=== PATIENT | male | born 1975 | race Caucasian/White ===

== ENCOUNTER 2019-11-20 12:20 | Observation (INO) ==
[2019-11-20] MEDS ORDERED: NITROGLYCERIN SL PRN (12:54)
[2019-11-20] MEDS ORDERED: ASPIRIN PO ONE (12:54)
[2019-11-20] MEDS ORDERED: NITROGLYCERIN TOP ONE (12:55)
--- NOTE | 2019-11-20 12:56 | Diag Imaging Result Doc PS360 ---
CHEST-2 VIEWS - 11/20/2019 INDICATION: CP COMPARISON: None FINDINGS: The lungs are normally expanded and clear. Heart size and mediastinal contours are normal. No pneumothorax or pleural effusion. IMPRESSION: Negative exam. Electronically signed by Andre Baumann 11/20/2019 12:53 PM
--- NOTE | 2019-11-20 13:11 | EKG Report ---
Test Performed on : 11/20/2019 12:41:05 PM Test Reason : CP Blood Pressure : / mmHG Vent. Rate : 070 BPM Atrial Rate : 070 BPM P-R Int : 150 ms QRS Dur : 092 ms QT Int : 390 ms P-R-T Axes : 026 019 077 degrees QTc Int : 421 ms Normal sinus rhythm. Cannot rule out Inferior infarct , age undetermined Abnormal ECG No previous ECGs available Unconfirmed Result
[2019-11-20 13:46] LABS: BASO# 0.02 X1000 (0.0-0.2); BASO% 0.2 % (0.0-0.8); EOS# 0.02 X1000 (0.0-0.7); EOS% 0.2 % (0.0-10.0); HEMOGLOBIN 16.4 g/dL (14.0-18.0); IMM GRAN# 0.01 X1000 (0.0-0.04); IMM GRAN% 0.1 % (0.0-0.5); LYMPH# 2.23 X1000 (1.2-3.4); LYMPH% 24.2 % (20.5-51.1); MCH 30.5 PG (27-31); MCHC 34.2 g/dL (33-37); MCV 89.4 FL (81-99); MONO# 0.54 X1000 (0.11-0.59); MONO% 5.9 % (1.7-9.3); MPV 11.2 FL (7.4-10.4); NEUT# 6.41 X1000 (1.4-6.5); NEUT% 69.4 % (42.2-75.2); PLT 187 X1000 (130-400); RBC 5.37 XMIL (4.7-6.1); RDW 12.8 % (11.5-14.5); WBC 9.23 X1000 (4.8-10.8)
[2019-11-20 14:26] LABS: AGAP 16; ALBUMIN 4.5 g/dL (3.5-5.0); ALKALINE PHOSPHATASE 97 U/L (32-122); BUN 9 mg/dL (8-22); CALCIUM 9.3 mg/dL (8.8-10.2); CHLORIDE 104 mmol/L (98-107); CK PROFILE 76 U/L (24-204); COSMO 284; CREATININE 0.8 mg/dL (0.7-1.2); ESTIMATED GFR > 60; GLUCOSE 169 mg/dL (70-104); GOT 16 U/L (10-34); GPT 18 U/L (10-44); POTASSIUM 4.5 mmol/L (3.5-5.1); SODIUM 141 mmol/L (136-145); TCO2 21 mmol/L (25-35); TOTAL PROTEIN 7.3 g/dL (6.3-8.3)
[2019-11-20 14:32] LABS: INR 0.87; PROTIME 12.2 Seconds (11.0-16.0)
[2019-11-20 14:33] LABS: PTT 30.5 Seconds (22.3-41.8)
[2019-11-20] MEDS ORDERED: TYLENOL PO ONE (15:35)
[2019-11-20] MEDS ORDERED: MORPHINE IV ONE (15:35)
--- NOTE | 2019-11-20 16:16 | EKG Report ---
Test Performed on : 11/20/2019 3:25:31 PM Test Reason : repeat Blood Pressure : / mmHG Vent. Rate : 063 BPM Atrial Rate : 063 BPM P-R Int : 156 ms QRS Dur : 100 ms QT Int : 390 ms P-R-T Axes : 015 006 043 degrees QTc Int : 399 ms Normal sinus rhythm. Incomplete right bundle branch block Inferior infarct (cited on or before 20-NOV-2019) Cannot rule out Anterior infarct , age undetermined Abnormal ECG When compared with ECG of 20-NOV-2019 12:41, (Unconfirmed) Questionable change in initial forces of Inferior leads Unconfirmed Result
--- NOTE | 2019-11-20 17:02 | ED EKG INTERP ---
This chart was entered by Sara Barclay Scribe, acting as scribe for Kahlil Garcia MD. EKG Interpretation - EKG Time of EKG reading by physician:: 15:35 EKG Read and Signed by:: Kahlil Garcia EKG Interpretation (*Must complete 3 of following elements*): Abnormal Rate: 63 (rt gracie block ) Rhythm: NSR QRS: poor R wave progression RI Interval: normal ST Wave: non-specific ST changes (NSSTTW) Prior EKG Comparison: unchanged from prior Comments: early repolarization Attestation - Physician/ RYAN Attestation Patient care was provided by Advanced Practice Provider:: No The physician spent face to face time with patient:: Yes Advanced Practice Provider documentation review:: Supervising physician onsite and consulted in the evaluation and care of this patient. The physician did have a face to face encounter with the patient. This chart was documented by the indicated scribe, (Sara Barclay Scribe) and accurately reflects the services I performed and decisions made by , Kahlil Garcia MD, as attested by the provider's signature.
--- NOTE | 2019-11-20 17:08 | PROVIDER DOCUMENTATION ---
This chart was entered by Nahed Catherine Scribe, acting as scribe for Kahlil Garcia MD. HPI-Chest Pain - General Chief Complaint: Chest Pain Stated Complaint: CHEST PAIN Time Seen by Provider: 11/20/19 12:50 Source: patient Allergies/Adverse Reactions: Patient Allergies Allergy/AdvReac Type Severity Reaction Status Date / Time No Known Allergies Allergy Verified 11/20/19 12:30 Home Medications: Home Medication List Medication Instructions Recorded Confirmed Last Taken Type No Home Medications 03/01/14 11/20/19 Unknown History - History of Present Illness-CP Nature of Presenting Problem: 44yom presents to ED cc chest pain that radiates to both jaws, both sides neck and left arm since this morning. Pt also reports some nausea and 1x vomiting. Pt reports he just can't get comfortable. Pt has no pmhx and saw his PCP/Dr. Shrestha 2 wks ago for check up and all was normal at that time Pt denies SOB. Location: reports: substernal Chest Pain Radiation: reports: jaw (both), arms (leeft), neck (both) Quality of Pain: reports: sharp Severity in ED: mild, moderate Onset/Duration: this morning Timing: still present Context/Activities at Onset: reports: light activity Modifying Factors: improves with: nothing Aspirin Treatment Today: 325 mg x 1, provided by ED Prior Chest Pain/Cardiac Workup: reports: no prior chest pain Similar Symptoms Previously?: No Recently Seen Here or By Another Healthcare Provider: Yes (saw PCP 2wks ago) Review of Systems - Adult - REVIEW OF SYSTEMS - ADULT Constitutional: reports: see HPI. denies: chills, fever, fatique Eyes: reports: no symptoms reported Ears, Nose, Mouth & Throat: reports: no symptoms reported Cardiovascular: reports: see HPI, chest pain Respiratory: reports: see HPI. denies: cough, shortness of breath Gastrointestinal: reports: see HPI, nausea, vomiting Genitourinary: reports: no symptoms reported Musculoskeletal: reports: no symptoms reported Integumentary: reports: no symptoms reported Neurological: reports: no symptoms reported Psychiatric: reports: no symptoms reported Endocrine: reports: no symptoms reported Hematologic/Lymphatic: reports: no symptoms reported Allergic/Immunologic: reports: no symptoms reported All Other Systems: Reviewed and Negative Past History - Adult - PAST MEDICAL HISTORY-ADULT Review of Records: reports: Nursing Assessment Review, Medications Reviewed, Social history reviewed & non-contributory. Major Childhood Illnesses: reports: denies history Cardiovascular: reports: denies history Respiratory: reports: denies history Gastrointestinal: reports: denies history Obstetrical/Gynecological: reports: denies history Genitourinary: reports: denies history Musculoskeletal: reports: denies history Neurological: reports: denies history Endocrine/Immune: reports: denies history Other Conditions: reports: denies history - IMMUNIZATION STATUS Childhood Immunizations: See Nurse Assessment Flu Vaccine: See Nurse Assessment - FAMILY HISTORY Family History: reviewed, not pertinent - SOCIAL HISTORY Smoking: cigarettes, greater than 1 pack/day Provider spent 3-5 mins advising pt. on dangers of tobacco.: Discussed manners to quit use, and f/u contacts for add'l counseling. Physical Exam-General - PHYSICAL EXAM-ADULT Initial Vital Signs Reviewed: Yes - CONSTITUTIONAL General Appearance: appears well, alert, no apparent distress. negative: anxious, combative - EYES Eyes: PERRL/EOMI, pink conjunctivae - HEAD, EARS, NOSE, MOUTH & THROAT HENMT: normocephalic/atraumatic, moist mucous membranes - NECK Neck: supple, normal inspection - RESPIRATORY Respiratory: chest non-tender, lungs clear, normal breath sounds. negative: wheezing - CARDIOVASCULAR Cardiovascular: normal peripheral pulses, regular rate, rhythm. negative: bradycardia, tachycardia - GASTROINTESTINAL (ABDOMEN) Abdominal Exam: non tender, soft. negative: rebound - MUSCULOSKELETAL Extremity: normal inspection. negative: deformity - SKIN Integumentary: normal color. negative: diaphoresis, jaundice, rash - PSYCHIATRIC Psych/Mental Status: normal mood/affect, oriented x 3. negative: anxious, disheveled - HEART Score HEART Score: History: Highly Suspicious HEART Score: ECG: Non-Specific Repolarization Disturbance/LBBB/PM HEART Score: Age: < or = 45 Years HEART Score: Risk Factors for Atherosclerotic Disease: No Risk Factors Known HEART Score: Troponin: 1-3x Normal Limit Total HEART Score:: 4 Progress - PLAN OF CARE/RESULTS Progress/Plan/Lab Results: Vital Signs - 8 hr 11/20/19 12:27 11/20/19 15:00 11/20/19 16:28 Temperature 97.4 F L Pulse Rate 74 69 71 Respiratory Rate 17 16 13 Blood Pressure 166/133 139/97 148/92 O2 Sat by Pulse Oximetry 97 98 96 11/20/19 16:45 Temperature Pulse Rate 67 Respiratory Rate 18 Blood Pressure 127/92 O2 Sat by Pulse Oximetry 96 Laboratory Results - last 24 hr 11/20/19 11/20/19 11/20/19 13:35 13:35 13:35 WBC 9.23 RBC 5.37 Hgb 16.4 Hct 48.0 MCV 89.4 MCH 30.5 MCHC 34.2 RDW Std Deviation 12.8 Plt Count 187 MPV 11.2 H Immature Gran % (Auto) 0.1 Neut % (Auto) 69.4 Lymph % (Auto) 24.2 Russell % (Auto) 5.9 Eos % (Auto) 0.2 Baso % (Auto) 0.2 Immature Gran # (Auto) 0.01 Neut # (Auto) 6.41 Lymph # (Auto) 2.23 Russell # (Auto) 0.54 Eos # (Auto) 0.02 Baso # (Auto) 0.02 PT INR PTT (Actin FS) Sodium 141 Potassium 4.5 Chloride 104 Carbon Dioxide 21 L Anion Gap 16 BUN 9 Creatinine 0.8 Estimated GFR/1.73 m2 > 60 BUN/Creatinine Ratio 11 Glucose 169 H Calculated Osmolality 284 Calcium 9.3 Total Bilirubin 0.40 AST 16 ALT 18 Alkaline Phosphatase 97 Creatine Kinase 76 Troponin T High Sens [id number]-Ywcngsoqvej Pept 9 Total Protein 7.3 Albumin 4.5 Globulin 3.0 Albumin/Globulin Ratio 2.0 11/20/19 11/20/19 11/20/19 13:35 13:35 15:25 WBC RBC Hgb Hct MCV MCH MCHC RDW Std Deviation Plt Count MPV Immature Gran % (Auto) Neut % (Auto) Lymph % (Auto) Russell % (Auto) Eos % (Auto) Baso % (Auto) Immature Gran # (Auto) Neut # (Auto) Lymph # (Auto) Russell # (Auto) Eos # (Auto) Baso # (Auto) PT 12.2 INR 0.87 PTT (Actin FS) 30.5 Sodium Potassium Chloride Carbon Dioxide Anion Gap BUN Creatinine Estimated GFR/1.73 m2 BUN/Creatinine Ratio Glucose Calculated Osmolality Calcium Total Bilirubin AST ALT Alkaline Phosphatase Creatine Kinase Troponin T High Sens 15 50 H D [id number]-Tbcrrzplorh Pept Total Protein Albumin Globulin Albumin/Globulin Ratio Orders Category Date Time Status Cardiac Monitoring DIRECTED Care 02/13/20 12:54 Active If abnormal EKG, order: NOW Care 11/20/19 12:35 Active Nursing- Obtain EKG once Care 11/20/19 14:55 Completed Oxygen Therapy- ED Nursing DIRECTED Care 11/20/19 12:54 Completed Saline Loc NOW Care 11/20/19 12:54 Completed CHEST-2 VIEWS [RAD] Stat Exams 11/20/19 12:35 Completed CBC WITH ELECTRONIC DIFF [HEME] Stat Lab 11/20/19 13:35 Completed CK PROFILE [SP CHEM] Stat Lab 11/20/19 13:35 Completed COMPREHENSIVE METABOLIC PANEL [CHEM] Stat Lab 11/20/19 13:35 Completed PRO B-NATRIURETIC PEPTIDE Stat Lab 11/20/19 13:35 Completed PROTIME WITH INR [COAG] Stat Lab 11/20/19 13:35 Completed PTT [COAG] Stat Lab 11/20/19 13:35 Completed TROPONIN T HIGH SENSITIVITY Stat Lab 11/20/19 13:35 Completed TROPONIN T HIGH SENSITIVITY Stat Lab 11/20/19 15:25 Completed Acetaminophen [Tylenol] Med 11/20/19 15:35 Discontinued 1,000 mg PO NOW ONE Aspirin Med 11/20/19 12:54 Discontinued 325 mg PO NOW ONE Morphine Med 11/20/19 15:35 Discontinued 2 mg IV NOW ONE Nitroglycerin Med 11/20/19 12:55 Discontinued 0.5 inch TOP NOW ONE Nitroglycerin Sl [Nitroglycerin] Med 11/20/19 12:54 Active 0.4 mg SL Q5M PRN PRN CP/Palp <45 No Known Cardiac Hx Stat Oth 11/20/19 12:35 Ordered CP/SOB/Palp >45 yrs of Age Stat Oth 11/20/19 12:54 Ordered EKG [EKG] Stat Ther 11/20/19 12:35 Draft EKG [EKG] Stat Ther 11/20/19 14:55 Draft Result Diagrams: 11/20/19 13:35 11/20/19 13:35 - REASSESSMENT Reassessment #1 Time Reassessed: 17:02 Status: improving (Pain is gone. hsTrop is non critical, but trending upward. That and the history and elevated BP concern me for unstable angina. Will ask Dr. Godoy to admit.) Reassessment Comment: BP 139/97 - EKG 1 Time of EKG reading by physician:: 12:40 EKG Read and Signed by:: Kahlil Garcia EKG Interpretation (*Must complete 3 of following elements*): Abnormal (cannot rule out inferior infarct, age undetermined; early repolarization) Rate: 70 Rhythm: NSR [place]: normal QRS: poor R wave progression Departure - Departure Date of Disposition Decision: 11/20/19 Time of Disposition Decision: 17:06 DIAGNOSIS: Chest pain, precordial, Unstable angina pectoris, Hypertensive urgency, Tobacco use disorder Disposition: ADMITTED INPATIENT 09 Certified Medical Emergency: Emergent Condition: Stable Referrals and Follow-Ups: Carlotta Shrestha MD [Primary Care Provider] - Discharge Education: Steps to Quit Smoking, [id number] - Critical Care Note This patient required my direct & personal management of CC.: No Attestation - Physician/ RYAN Attestation Patient care was provided by Advanced Practice Provider:: No The physician spent face to face time with patient:: Yes Advanced Practice Provider documentation review:: Supervising physician onsite and consulted in the evaluation and care of this patient. The physician did have a face to face encounter with the patient. This chart was documented by the indicated scribe, (Nahed Catherine, Mauryibjerman) and accurately reflects the services I performed and decisions made by me, Kahlil Garcia MD, as attested by the provider's signature.
[2019-11-20] MEDS ORDERED: LOPRESSOR PO ONE (17:49)
[2019-11-20] MEDS ORDERED: TYLENOL PO PRN (17:49)
[2019-11-20] MEDS ORDERED: ZOFRAN IV PRN (17:49)
[2019-11-20 21:45] LABS: CK INDEX 12.6 (0.0-2.5); CK-MB 68.02 ng/mL (0.0-5.0)
[2019-11-20 22:15] LABS: INR 0.93; PROTIME 12.9 Seconds (11.0-16.0)
--- NOTE | 2019-11-21 02:18 | HISTORY AND PHYSICAL ---
CHIEF COMPLAINT: Chest pain. HISTORY OF PRESENT ILLNESS: The patient is a 44-year-old male with no previous history of coronary disease and no family history. Presents to the emergency department with pain radiating to his left jaw, left arm, has some chest tightness and shortness of breath. Has felt nauseated. Symptoms came on earlier today and would not relieve and therefore he came to the ER. ALLERGIES: No known drug allergies. MEDICATIONS: None. PAST MEDICAL HISTORY: The patient denies any hypertension, diabetes, high cholesterol, coronary artery disease. FAMILY HISTORY: No coronary artery disease. SOCIAL HISTORY: Patient does smoke a pack a day. Denies illicit substance use. REVIEW OF SYSTEMS: As noted above. Does have chest pain with radiation to his left arm, left jaw. Has shortness of breath associated with it mild to moderate, came on with light activity. Denies headaches, blurred vision, change in vision. Denies any focalized numbness, tingling, or weakness in his extremities. Denies dysuria, urinary frequency, urgency, hesitancy, polyuria or polydipsia. PHYSICAL EXAMINATION: VITAL SIGNS: Reviewed. Temperature 97.4 degrees, pulse 74, respiratory rate 18, BP 116/133, currently 148/92. GENERAL: Patient is pleasant. He is in no current respiratory distress. HEENT: Normocephalic. NECK: Supple. CARDIOVASCULAR: Regular rate. CHEST: Clear, nonlabored. ABDOMEN: Soft, nondistended, nontender. EXTREMITIES: Moves all extremities. NEUROLOGIC: No focal changes. ASSESSMENT: 1. Chest pain. 2. Hypertension. 3. Chronic tobacco abuse. PLAN: We are going to continue patient in the hospital. Continue to follow. We will rule out [facility]. Should his enzymes remain negative, we will obtain a stress test in the morning. Discussed with patient the importance of stopping smoking. His glucose was elevated at 169 with undetermined significance. We are going to check an A1c and we will follow. cc: Dane Godoy MD
[2019-11-21 03:47] LABS: CK INDEX 12.7 (0.0-2.5); CK-MB 117.9 ng/mL (0.0-5.0)
[2019-11-21] MEDS ORDERED: LOVENOX SUBQ ONE (03:56)
[2019-11-21] MEDS ORDERED: ASPIRIN PO ONE (04:03)
[2019-11-21 07:46] VITALS: BP 105/61
[2019-11-21 07:52] LABS: BASO# 0.02 X1000 (0.0-0.2); BASO% 0.2 % (0.0-0.8); EOS# 0.09 X1000 (0.0-0.7); EOS% 0.9 % (0.0-10.0); HEMATOCRIT 46.1 % (42.0-52.0); HEMOGLOBIN 15.1 g/dL (14.0-18.0); IMM GRAN# 0.02 X1000 (0.0-0.04); IMM GRAN% 0.2 % (0.0-0.5); LYMPH# 3.64 X1000 (1.2-3.4); LYMPH% 38.2 % (20.5-51.1); MCHC 32.8 g/dL (33-37); MCV 91.7 FL (81-99); MONO# 0.73 X1000 (0.11-0.59); MONO% 7.7 % (1.7-9.3); MPV 11.7 FL (7.4-10.4); NEUT# 5.04 X1000 (1.4-6.5); NEUT% 52.8 % (42.2-75.2); PLT 182 X1000 (130-400); RBC 5.03 XMIL (4.7-6.1); RDW 13.3 % (11.5-14.5); WBC 9.54 X1000 (4.8-10.8)
[2019-11-21 08:08] LABS: HEMOGLOBIN A1C 6.2 % (4.8-6.0)
[2019-11-21] MEDS ORDERED: HEPARIN IV ONE (08:12)
[2019-11-21 08:29] LABS: AGAP 12; ALBUMIN 3.9 g/dL (3.5-5.0); ALKALINE PHOSPHATASE 84 U/L (32-122); BUN 8 mg/dL (8-22); CALCIUM 8.8 mg/dL (8.8-10.2); CHLORIDE 105 mmol/L (98-107); COSMO 276; CREATININE 0.6 mg/dL (0.7-1.2); ESTIMATED GFR > 60; GLUCOSE 142 mg/dL (70-104); GOT 87 U/L (10-34); GPT 28 U/L (10-44); MAGNESIUM 1.8 mg/dL (1.5-2.7); POTASSIUM 4.4 mmol/L (3.5-5.1); SODIUM 138 mmol/L (136-145); TCO2 22 mmol/L (25-35); TOTAL PROTEIN 6.7 g/dL (6.3-8.3)
[2019-11-21] MEDS ORDERED: HEPARIN 25,000 UNITS/D5W 25,000 UNIT/250 ML IV.SOLN IV SCH ×2 (08:30→16:00)
[2019-11-21 08:51] LABS: CK INDEX 11.9 (0.0-2.5); CK-MB 115.8 ng/mL (0.0-5.0)
[2019-11-21] MEDS ORDERED: ASPIRIN PO SCH (09:00)
[2019-11-21 09:14] LABS: FREE T4 1.15 ng/dL (0.93-1.70); TSH 2.02 uIUmL (0.27-4.20)
--- NOTE | 2019-11-21 11:51 | DISCHARGE SUMMARY ---
ADMISSION DATE: 11/20/2019 DISCHARGE DATE: 11/21/2019 ADMISSION DIAGNOSES: 1. Chest pain. 2. Hypertension. 3. Chronic tobacco abuse. DISCHARGE DIAGNOSES: 1. Non ST elevated myocardial infarction. 2. Situational Hypertension. 3. Tobacco abuse. 4. New Hypertriglyceridemia. 5. New onset diabetes mellitus type 2. HgbA1c 6.2 6. Morbid obesity, body mass index is 40.6. CONSULTATIONS: Cardiology with recommendation for transfer to [facility]. SURGERIES AND PROCEDURES: None. HOSPITAL COURSE: Mr. Sandor Vasquez is a 44-year-old male who presented yesterday after developing a sudden onset of midsternal chest pain that radiated down into the left arm and up to the jaw. There was some mild shortness of breath. He would describe the radiation as if he felt like braces were being tightened along his teeth. Initial 2 sets of cardiac enzymes were negative. However, during the night, they increased up to over 800 and now they are over 1300. He has been chest-pain free since yesterday. The hypertension resolved. There is no actual medical history of hypertension until this admission. He still continues to be chest pain-free and we are preparing for transfer to [facility] for advanced level of care and evaluation for a left heart catheterization, possible stent. DISCHARGE VITAL SIGNS: Temperature 98.6 degrees, heart rate 66, respiratory rate 18, blood pressure 105/61, O2 saturation 95% on room air, 5 feet 7 inches tall, 259 pounds, BMI is 40.6. DISCHARGE LABORATORY DATA: White blood cells 9000, hemoglobin 15, hematocrit 46, platelet count 182,000. Sodium 138, potassium 4.4, BUN 8, creatinine 0.6, glucose 142. Hemoglobin A1c is 6.2. Calcium is 8.8. Magnesium 1.8. Bilirubin 0.30, AST 87, ALT 28. CK 975, index is 11.9, MB is 115.8, troponin is 1379, CRP pending. Albumin 3.9. Triglycerides 208, total cholesterol 160, LDL 106, HDL 25, TSH 2.02, free T4 is 1.15. IMAGING: Chest x-ray, negative exam. First EKG, sinus rhythm, rate 70, QTc 421, no obvious ST elevations in contiguous leads, however, in lead 3, there appears to be maybe a trace amount of ST elevation, but it is just 1 lead, and that was at 12:35 yesterday, and then at 2:55 yesterday, normal sinus rhythm, rate 63, QTc is 399. There still tends to be a trace amount of elevation, but only in lead 3. There is no contiguous leads on it either. We have an EKG pending for this morning that has not been resulted yet. DISCHARGE MEDICATIONS: He has been started on a heparin drip. He has no home medications that he is on but he will need to be initiated on home statin, aspirin, possibly a beta mike, but that will be evaluated at [facility]. DISCHARGE INSTRUCTIONS: Per [facility] recommendations. DISCHARGED DIET: Currently, he is n.p.o. but once he is discharged from there, will likely need heart healthy, diabetic. DISCHARGE ACTIVITY: As tolerated. DISCHARGE DISPOSITION: Transfer to [facility] for further advanced care. Dictated by STACEY Cooper for Dane Godoy MD cc: STACEY Cooper MD [facility]
[2019-11-21 13:29] LABS: C REACTIVE PROT QUANT 6.52 mg/L (0.00-5.00)
[2019-11-21] MEDS ORDERED: LOVENOX SUBQ SCH (16:00)
--- NOTE | 2019-11-22 05:19 | DISCHARGE SUMMARY ---
ADMISSION DATE: 11/20/2019 DISCHARGE DATE: 11/21/2019 DISCHARGE DIAGNOSES: 1. Acute non ST elevated myocardial infarction with elevated troponin. 2. Chest pain, currently resolved. 3. Tobacco abuse. 4. Overweight. CONSULTATION: Cardiology. PROCEDURES: None. BRIEF HOSPITAL COURSE: The patient is a 44-year-old male who presented to [facility] ER secondary to chest pain and pressure. Initially on exam in the hospital, he was somewhat ill appearing. His color was off. He did not feel well. He appeared to be short of breath and was having some pressure in his chest upon evaluation. His 1st troponin actually was 15. The 2nd one was 50. He had some nonspecific ST-T wave changes. Therefore, he was kept overnight. His 3rd troponin elevated at 824. Cardiology was consulted and felt as though he needed to be transferred to [place]. We did call [facility] and started. He was given 1 dose of Lovenox overnight as well as aspirin. On discharge/transfer, patient was awake, alert. He is in no distress. Notes that all of his symptoms have resolved. However, given that his troponin did elevate we are going to transfer to [place] for left heart cath. The patient and his understand and agree. cc: Dane Godoy MD
== END 2019-11-21 11:29 | disposition short-term general hospital (02) ==
LOC: P.MEDSURG 12:20 → P.ED 12:20
PROVIDERS: ATTEND Family Medicine